=== PATIENT | male | born 1995 | race Caucasian/White ===

== ENCOUNTER 2020-09-22 11:00 | Emergency (ER) | payer OTHER ==
[2020-09-22 11:16] VITALS: BP 111/58
--- NOTE | 2020-09-22 11:42 | ED Physician Documentation ---
History of Present Illness - Stated complaint Stated Complaint: SINUS CONGESTION - Chief complaint Chief Complaint: General - Additonal information Additional information: 24-year-old male presents the emergency department for evaluation of nasal congestion that began last night. No cough fevers abdominal pain vomiting diarrhea. Denies a sore throat. No headache or neck pain. He does work in the [employer] and he called the advice line and was told to come to the ER for Covid screening. Denies any pertinent past medical history. Positive tobacco use. Review of Systems Constitutional: reports: Reviewed and negative Ears: denies: Loss of hearing, Ear pain, Drainage/discharge Nose: reports: Rhinorrhea / runny nose, Congestion Throat: denies: Oral lesions / sores, Sore throat Cardiac: denies: Chest pain / pressure, Palpitations GI: reports: Reviewed and negative : reports: Reviewed and negative Skin: reports: Reviewed and negative Musculoskeletal: reports: Reviewed and negative Neurologic: reports: Reviewed and negative PD PAST MEDICAL HISTORY - Past Medical History Past Medical History: No - Past Surgical History Past Surgical History: No - Allergies Allergies/Adverse Reactions: Allergies Allergy/AdvReac Type Severity Reaction Status Date / Time No Known Drug Allergies Allergy Verified 09/22/20 11:15 - Social History Does the pt smoke?: No Smoking Status: Never smoker Does the pt drink ETOH?: Yes Does the pt have substance abuse?: No - Immunizations Immunizations are current?: Yes - POLST Patient has POLST: No PD ED PE EXPANDED - General General: Alert, No acute distress - HEENT HEENT: Atraumatic, PERRL, Ears normal, Nasal congestion, Moist mucous membranes, Pharynx normal. No: Right frontal sinus TTP, Left frontal sinus TTP, Right maxillary sinus TTP, Left maxillary sinus TTP - Eyes Eyes: PERRL, Normal accommodation - Neck Neck: Supple w/out meningeal sx. No: Adenopathy - Cardiac Cardiac: Regular Rate, Regular Rhythm, Radial strong equal, Pedal strong equal, Cap refill < 2 sec - Respiratory Respiratory: Clear to ausultation john. No: Distress, Labored - Abdomen Abdomen: Normal Bowel sounds. No: Tender to palpation - Derm Derm: Normal color, Warm and dry, Petecchiae, Purpura. No: Rash - Extremities Extremities: Normal. No: Deformity, Tenderness - Neuro Neuro: Alert and Oriented X 3, CNII-XII intact Results - Vitals Vitals: Vital Signs - 24 hr 09/22/20 11:11 Temperature 37.0 C Heart Rate 92 Respiratory 14 Rate Blood Pressure 111/58 L O2 Saturation 100 Oxygen O2 Source Room air PD MEDICAL DECISION MAKING - ED course Complexity details: reviewed results, re-evaluated patient, considered differential, d/w patient ED course: 24-year-old male presents emergency department for 24 hours of nasal congestion without fevers, headache sore throat cough abdominal pain nausea vomiting or diarrhea. He is here mostly for COVID-19 screening. We will complete this as patient remain in quarantine. Otherwise he appears well routine [id number] care measures for suspected viral URI discussed. Departure - Departure Disposition: 01 Home, Self Care Clinical Impression: Congestion of nasal sinus Condition: Stable Record reviewed to determine appropriate education?: Yes Comments: You have a Covid test pending. You need to self quarantine until the result is done and negative. Do not leave your house. Do not get near anybody. The results should be done in 48 to 72 hours. We will call with a positive result, the fastest way to get a negative result for confirmation though is to go to the hospital website at [email or web address], click on the my Prized tab and sign up for the patient portal. If any friends or family get sick and would like to have a Covid test done, but do not have signs or symptoms that would necessitate being hospitalized, we encourage testing through our coronavirus swabbing station, call [phone] to schedule an appointment.
== END 2020-09-22 12:02 | disposition home or self-care (01) ==
LOC: ED 11:00
DX: R09.81 Nasal congestion (principal); Z20.822 Contact with and (suspected) exposure to COVID-19; Z72.0 Tobacco use
CPT/HCPCS: 99282; 99283

== ENCOUNTER 2021-03-13 08:00 | Outpatient (CLI) | payer OTHER ==
[2021-03-13 18:19] LABS: RAPID STREP SCREEN Negative (Negative)
== END 2021-03-13 23:59 | disposition home or self-care (01) ==
LOC: LAB.N 08:00
PROVIDERS: ATTEND Nurse Practitioner
DX: R07.0 Pain in throat (principal); Z20.822 Contact with and (suspected) exposure to COVID-19
CPT/HCPCS: 87070; 87430

== ENCOUNTER 2022-10-22 09:27 | Outpatient (CLI) | payer OTHER ==
[2022-10-22 12:21] VITALS: BP 98/62
--- NOTE | 2022-10-22 12:21 | SLEEP CARE CONSULTATION ---
Information from patient questionnaire entered by Germaine Pardo. I have reviewed and concur with the information entered by Germaine Pardo. This document represents the service I personally performed and the decisions made by me, Stevenson Angeles MD, [facility]. History of Present Illness Service Date and Time: 10/22/2022926 Reason for Visit: New patient Chief Complaint: reports: Unrefreshed sleep, Snoring, Observed pauses in breathing Date of Onset: 2YRS Usual bedtime: 1030PM Time it takes to fall asleep: 5MIN Snores at night: Yes Observed to quit breathing while asleep: Yes Sleeps alone due to snoring: No Number of times waking at night: 1-2 Reasons for waking at night: reports: Choking, Snoring, Pain, Other (UNKOWN) Toss, Turn, or Twitch while sleeping: Yes Recalls having dreams: Yes Usually gets out of bed at: 530AM Feels refreshed in the morning: No Morning headache: No Sleepy or fatigued during the day: Yes Ever fallen asleep while driving: No Takes day naps: Yes Dreams during day naps: No Prior sleep studies: No Additional HPI information: I had the pleasure of seeing Mr. Ramos today regarding the possibility of him having a sleep disorder. As you know, he is a 27-year-old gentleman who complains of loud snore and his has seen him quit breathing while asleep. The patient tells me that he normally goes to bed around 10:30 pm, and it takes him approximately 5 minutes to fall asleep. His can still sleep in the same bed. He can recall waking up on the average of 1 - 2 times during the night. Most of the time he wakes up because of pain. He has awakened occasionally because of his own snoring, choking, and having to gasp for air. There is a lot of tossing and turning in his sleep. He has somniloquy (sleep talking) but not somnambulism (sleep walking). Generally, he can recall having dreams. In the morning he usually gets up out of the bed around 5:30 a.m. not feeling refreshed nor rested. He usually does not have a morning headache. During the day he complains of feeling sleepy and fatigued. His score on [place] Sleepiness Scale is 7 out of 24. He never has fallen asleep while driving nor has had any accident due to sleepiness. He usually takes naps during the day. Upon falling asleep during the day he denies having vivid dreams. He has never had sleep paralysis, experienced cataplexy or symptoms but restless leg syndrome about twice a week. He denies having impaired concentration during the day. - Parasomnia Symptoms Ever been unable to move upon waking from sleep: No Walks in sleep: No Talks in sleep: Yes Ever acted out dreams in sleep: Yes Ever felt weak in the knees when startled or emotional: No Bothered by creepy, crawly, restless sensations in legs: Yes Problems with memory or concentration: No Subjective Initial [place] Sleepiness Scale score: 7 (10/19/22) Past Medical History Past Medical History: reports: Anxiety (ULCERTIVE COLITIS), Depression Social History The patient's occupation is a AM. Patient is and lives in . Have you smoked in the past 12 months: No Years of smokin Quit date: 2020 Alcohol use: Yes Alcohol amount and frequency: 1-2 DRINKS CELEBRATION Caffeine use: Yes Caffeine amount and frequency: 1-3 DAILY Family History Family history of sleep disordered breathing: Yes Family Hx Sleep Apnea: Father: Snoring, Sibling: Snoring Allergies and Home Medications Known drug allergies: No Drug allergies reviewed: Yes Home medication list reviewed: Yes Allergy and home medication list: Allergies No Known Drug Allergies Allergy (Verified 10/19/22 14:29) Review of Systems Weight gain over past 5 years: 20 Cardiovascular: denies: high blood pressure, palpitations, chest pain, irregular heart rate or pulse, leg or foot swelling, have to sleep sitting up, other Respiratory: denies: shortness of breath, wheeze, sputum production, chronic cough, other Gastrointestinal: reports: heartburn, abdominal pain Urinary: denies: incontinence, frequency, urgency, impotence, other Neurological: reports: headaches. denies: seizure, head trauma, disorientation, speech dysfunction, gait or balance problems, fainting or unconsciousness, other Psychiatric: reports: anxiety, depression Ear/Nose/Throat: reports: sinus problems, dry mouth/throat Endocrine: reports: sluggishness, too hot or cold Musculoskeletal: reports: joint pain, neck pain, back pain, muscle pain or cramping, mobility problems Immunologic: reports: sneezing, allergies to food or environment Physical Exam Vital signs obtained and entered by: GERMAINE Nelson MA Blood Pressure: 98/62 (LEFT ARM) Cuff size: regular Heart Rate: 73 O2 Saturation: 98 Height: 5 ft 10 in Weight: 167 lb 3.2 oz Body Mass Index: 24.0 BMI Classification: Normal Neck circumference: 15.25 Mood/affect: Normal HEENT: No craniofacial malformation Nostrils: patent to airflow Turbinates: normal Septum: midline Mouth and throat: narrow oropharynx Soft palate: long Hard palate: normal Uvula: normal Uvula visualization: 50% Mallampati Class II Tongue: normal in size Tonsils: absent bilaterally Chin and jaw: normal size and position Neck: normal w/o lymphadenopathy or thyromegaly Heart: regular rate and rhythm Lungs: clear bilaterally Extremities: no edema or clubbing Neurologic: intact Impression and Plan IMPRESSION: 1. Obstructive Sleep Apnea-Hypopnea Syndrome, as suggested by history of loud and irregular snoring, observed cessation of breath while asleep, unrefreshed sleep, and daytime hypersomnolence. Narrow oropharynx is a common predisposing factor for obstructive sleep apnea-hypopnea syndrome. I recommend proceeding to polysomnography to confirm the diagnosis and to assess severity. If he has significant sleep disordered breathing, a manual CPAP titration study will also be performed to find the optimal treatment pressure. I informed the patient of what the sleep studies involve and after some discussion, he agreed to proceed. Plan: 1. Schedule polysomnography + manual CPAP titration study and return in 1 to 2 weeks after the study to discuss result and initiate therapy. 2. Avoid long distance driving or when feeling sleepy. 3. Avoid alcohol, sedative and muscle relaxant around bedtime. Follow up with Sleep Care in: 1-2 months Visit Type: In Office Time Spent with Patient (minutes): 15 Provider Statement: I spent 100% of the Face to Face Visit with the patient with greater than 50% spent counseling the patient and coordination of care.
== END 2022-10-22 09:28 | disposition home or self-care (01) ==
LOC: SC 09:27
PROVIDERS: ATTEND Internal Medicine Pulmonary Disease
DX: R06.83 Snoring (principal); G47.8 Other sleep disorders; R06.81 Apnea, not elsewhere classified; G47.10 Hypersomnia, unspecified; F32.A Depression, unspecified; Z87.891 Personal history of nicotine dependence
CPT/HCPCS: 99202; 99212

== ENCOUNTER 2022-11-15 19:32 | Outpatient (CLI) | payer OTHER | END 2022-11-15 19:33 | disposition home or self-care (01) | LOC: SC 19:32 | PROVIDERS: ATTEND Internal Medicine Pulmonary Disease | DX: G47.63 Sleep related bruxism (principal) | CPT/HCPCS: 95810 ==

== ENCOUNTER 2022-12-19 14:05 | Outpatient (CLI) | payer OTHER ==
--- NOTE | 2022-12-19 14:35 | Sleep Patient Instructions ---
Sleep Center Visit Summary - Patient Visit Information Reason for Visit: Sleep Study Followup - Patient Instructions Instructions Attached: Bruxism Teeth Grind Additional Instructions: Your sleep study today was negative for significant sleep disordered breathing. However, you did have Bruxism for which you should see your dentist. You were found to have of snoring. There are different ways to control snoring including weight loss, oral devices made by a dentist or surgical options through ENT specialist. You should not use oral devices that do not fit properly because they can affect your bite. You should also check insurance coverage of oral devices for snoring because they may not be cover well. You may obtain a referral to an ENT specialist through your primary provider Follow-up as needed. - Clinic Information Contact: [facility] [address] [place] [address] [email or web address] T: [phone]
--- NOTE | 2022-12-19 14:38 | SLEEP CARE CONSULTATION ---
Information from patient questionnaire entered by Silvia Pardo. I have reviewed and concur with the information entered by Silvia Pardo. This document represents the service I personally performed and the decisions made by , Geneva Dang ARNP. History of Present Illness Service Date and Time: 12/19/2022 1405 Initial [place] Sleepiness Scale score: 7 (10/19/22) Current [place] Sleepiness Scale score: 9 (12/19/22) Additional HPI information: HIRA GRIFFIN returns for follow up and results of the recently performed polysomnography. The patient was informed of the following findings: No significant sleep disordered breathing with an average AHI of 1.6 and eloisa oxygen saturation of 91%. He had bruxism. I explained the pathophysiology behind obstructive sleep apnea. Patient does not have sleep apnea and was advised how weight gain could increase the risk of developing sleep apnea in the future. Patient has loud snoring. Snoring can be reduced by weight loss. Weight loss is best achieved with diet consult. Patient instructed to contact PCP for referral. Snoring can also be treated with an oral appliance from a dentist. Advised to check insurance coverage. In addition, an ENT evaluation can be do to see if other treatment is indicated. Patient counseled not drink alcohol less than 4 hours before bedtime as it can increase snoring and apnea. Patient was cautioned about risks of drowsy driving until sleepiness symptoms resolve. Patient denies drowsy driving. Sleep Study - Results Type of Sleep Study: Polysomnography (COMPLETED 11/15/22) Prior sleep studies: No Polysomnography/Home Sleep Study results: IMPRESSION: The quality of the study is good. The patient had normal sleep efficiency. The sleep architecture was normal as well. Respiratory monitoring showed no significant sleep disordered breathing obstructive sleep apnea-hypopnea (AHI = 1.6) or hypoxia (eloisa oxygen saturation of 91%). The rare respiratory events occurred only during supine sleep (supine AHI = 2.4; non-supine = 0.00). Snore was loud in intensity. There was no significant periodic leg movement of sleep. Cardiac rhythm was normal sinus rhythm without significant arrhythmia. Patient had bruxism. Allergies and Home Medications Known drug allergies: No Drug allergies reviewed: Yes Home medication list reviewed: Yes (no changes) Allergy and home medication list: Allergies No Known Drug Allergies Allergy (Verified 12/18/22 15:42) Review of Systems Review of systems same as previous: Yes (no changes) Physical Exam Vital signs obtained and entered by: SILVIA Nelson MA Blood Pressure: 108/62 (LEFT ARM) Cuff size: regular Heart Rate: 76 O2 Saturation: 99 Height: 5 ft 10 in Weight: 165 lb 6.4 oz Body Mass Index: 23.7 BMI Classification: Normal Impression and Plan 1. Snoring but no significant sleep disordered breathing. Patient advised that often weight loss will reduce snoring as well as apnea risk. An oral appliance can also be used for snoring. This would require a dental consultation. Patient cautioned not to use other online appliances as can cause bite issues. A list of accredited dentists in area and one local dentist who makes oral appliances is available in office as needed. Patient is advised to check if insurance will cover. An ENT consult can also be helpful to determine if any other treatment is an option. 2. Bruxism. He was advised to follow up with a dentist as needed for further evaluation and treatment of bruxism. * Follow up with dentist for bruxism * Avoid alcohol consumption near bedtime * Return as needed for follow up. Visit Type: In Office Time Spent with Patient (minutes): 12 Provider Statement: I spent 100% of the Face to Face Visit with the patient with greater than 50% spent counseling the patient and coordination of care.
[2022-12-19 14:41] VITALS: BP 108/62
== END 2022-12-19 14:06 | disposition home or self-care (01) ==
LOC: SC 14:05
PROVIDERS: ATTEND Nurse Practitioner Family
DX: R06.83 Snoring (principal); G47.63 Sleep related bruxism
CPT/HCPCS: 99212

== ENCOUNTER 2023-02-01 07:49 | Outpatient (CLI) | payer OTHER ==
[2023-02-01] MEDS ORDERED: LIDOCAINE-MPF 1% 5 ML VIAL ONE (08:04)
[2023-02-01] MEDS ORDERED: GADOBUTROL 10 MMOL/10 ML VIAL ONE (08:04)
[2023-02-01] MEDS ORDERED: iohexoL-240 10 ML VIAL IVP ONE (08:04)
--- NOTE | 2023-02-01 09:29 | MRI Report ---
PROCEDURE: LUMBAR SPINE WO INDICATIONS: LUMBAR RADICULOPATHY TECHNIQUE: Noncontrast sagittal T1 spin echo and T2 fast echo, sagittal STIR, axial T1 and T2 fast spin echo thr ough the lumbar spine. In cases with scoliosis, additional coronal T2 fast spin echo may be performe d. COMPARISON: None. FINDINGS: Image quality: Excellent. Alignment and Curvature: Straightening of lumbar lordosis. No spondylolisthesis.. Bone Marrow: Vertebral body marrow is of normal overall signal. No acute vertebral body compression fractures. There is edema surrounding the right sacroiliac joint with possible widening of the joint which is not completely visualized on this exam. To lesser extent, there is edema within the left sa fariha adjacent to the left sacroiliac joint. Spinal Cord: Conus medullaris terminates at the L1 level. Visualized cord demonstrates normal signa l and size. Paraspinous Soft Tissues: No paravertebral masses. T12-L1: Normal in appearance. L1-L2: Normal in appearance. L2-L3: Normal in appearance. L3-L4: Normal in appearance. L4-L5: Normal in appearance. L5-S1: Disc desiccation and mild height loss. Small posterior central disc protrusion and annular t ear. No significant spinal canal stenosis. No neuroforaminal stenosis. 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 No spinal canal or neuroforaminal stenosis. 2.Edema surrounding the right greater than left sacroiliac joints with possible widening on the right . This is not completely included within the [id number]. Recommend dedicated imaging of the sacrum . Reviewed by: Geoffrey Young MD on 02/01/2023 9:28 AM PDT Approved by: Geoffrey Young MD on 02/01/2023 9:28 AM PDT Station ID: [id number]
== END 2023-02-01 07:50 | disposition home or self-care (01) ==
LOC: DI 07:49
PROVIDERS: ATTEND Student in an Organized Health Care Education/Training Program
DX: M51.17 Intervertebral disc disorders with radiculopathy, lumbosacral region (principal)
CPT/HCPCS: Q9966